=== PATIENT | male | born 1980 | race Caucasian/White ===

== ENCOUNTER 2017-03-06 18:05 | Emergency (ER) | payer SELFPAY ==
[~2017-03-06] VITALS: Ht 175.3 cm; Wt 72.6 kg
--- NOTE | 2017-03-06 18:05 | NUR ---
Patient [facility] accompanied by [place] [employer] to be evaluated as pre-book, transferred to bed 7. RN evaluating patient at bedside.
[2017-03-06 18:09] VITALS: BP 120/79
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
--- NOTE | 2017-03-06 18:25 | NUR ---
WENT TO CT SCAN ACCOMPANIED BY TECH.
--- NOTE | 2017-03-06 19:15 | NUR ---
back from ct scan
--- NOTE | 2017-03-06 19:30 | NUR ---
pt unable to sign tdap consent because he said in great pain;pt is aware and agreed to have TDAP.
[2017-03-06 20:07] VITALS: BP 129/66
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
== END 2017-03-06 20:07 ==
LOC: MED 18:05
DX: S30.0XXA Contusion of lower back and pelvis, initial encounter (principal); S80.02XA Contusion of left knee, initial encounter; S90.02XA Contusion of left ankle, initial encounter; S00.81XA Abrasion of other part of head, initial encounter; F19.90 Other psychoactive substance use, unspecified, uncomplicated; X58.XXXA Exposure to other specified factors, initial encounter; Y93.89 Activity, other specified; Y92.89 Other specified places as the place of occurrence of the external cause; Y99.8 Other external cause status
CPT/HCPCS: 70450; 72100; 72131; 73562; 73610; 90471; 90715; 99284